=== PATIENT | male | born 1975 | race Caucasian/White ===

== ENCOUNTER → 2023-10-18 06:20 | Outpatient (REF) | payer BC, SELFPAY ==
[2023-10-18 07:22] LABS: ALT (SGPT) 50 U/L (0-50); AST (SGOT) 34 U/L (17-59); Albumin 4.4 g/dl (3.5-5.0); Alkaline Phosphatase 57 U/L (38-126); Blood Urea Nitrogen 24 mg/dl (9-20); Calcium 9.5 mg/dl (8.4-10.2); Carbon Dioxide 27 mmol/L (22-30); Chloride 103 mmol/L (98-107); Glucose 98 mg/dl (70-99); HDL Cholesterol 55 mg/dl; LDL Cholesterol, Calculated 14 mg/dl; Potassium 4.1 mmol/L (3.5-5.1); Sodium 137 mmol/L (135-145); Total Bilirubin 1.4 mg/dl (0.2-1.3); Total Cholesterol 87 mg/dl (50-199); Total Protein 6.6 g/dl (6.3-8.2); Triglyceride 92 mg/dl (10-149); Very Low Density Lipoprotein 18 mg/dl (0-30); eGFR > 60.00
== END ==
LOC: REG 06:20
PROVIDERS: ATTENDING PHYSICIAN Nurse Practitioner Family
DX: E78.2 Mixed hyperlipidemia (principal); R94.5 Abnormal results of liver function studies
CPT/HCPCS: 36415; 80053; 80061

== ENCOUNTER → 2024-05-15 06:22 | Outpatient (REF) | payer BC, SELFPAY ==
[2024-05-15 07:41] LABS: Urine Albumin Negative (Neg - Trace); Urine Bilirubin Negative (Negative); Urine Character Clear (Clear); Urine Color Yellow; Urine Glucose Negative (Negative); Urine Ketone Negative (Negative); Urine Leukocyte Negative (Negative); Urine Nitrite Negative (Negative); Urine Occult Blood Negative (Negative); Urine Urobilinogen Negative (Neg - 1+)
[2024-05-15 07:45] LABS: % Basophils 0.4 % (0-2); % Eosinophils 1.4 % (0-6); % Immature Granulocytes 0.3 % (0-0.5); % Lymphocytes 19.3 % (20.5-51.1); % Monocytes 14.4 % (1.7-9.3); % Neutrophils 64.2 % (42.2-75.2); Absolute Eosinophils 0.1 10^3/uL (0-0.7); Absolute Lymphocytes 1.8 10^3/uL (1.2-3.4); Absolute Monocytes 1.3 10^3/uL (0.1-0.6); Absolute Neutrophils 5.9 10^3/uL (1.4-6.5); Hematocrit 47.9 % (39.0-52.0); Hemoglobin 17.1 g/dL (13.0-18.0); Mean Corp Hgb Conc. 35.7 g/dL (33.0-37.0); Mean Corpuscular Hgb 31.7 pg (27.0-31.0); Mean Corpuscular Volume 88.9 fL (80.0-94.0); Mean Platelet Volume 11.6 fL (7.4-10.4); Nucleated Red Blood Cells % 0 % (-); Platelet Count 216 10^3/uL (130-400); Red Blood Cell Count 5.39 10^6/uL (4.70-6.10); Red Cell Dist. Width 13.1 % (11.5-14.5); White Blood Cell Count 9.2 10^3/uL (4.8-10.8)
[2024-05-15 08:59] LABS: ALT (SGPT) 59 U/L (0-50); AST (SGOT) 36 U/L (17-59); Albumin 4.5 g/dl (3.5-5.0); Alkaline Phosphatase 51 U/L (38-126); Blood Urea Nitrogen 22 mg/dl (9-20); Calcium 9.6 mg/dl (8.4-10.2); Carbon Dioxide 28 mmol/L (22-30); Chloride 103 mmol/L (98-107); Glucose 96 mg/dl (70-99); HDL Cholesterol 57 mg/dl; LDL Cholesterol, Calculated 20 mg/dl; Potassium 4.6 mmol/L (3.5-5.1); Sodium 142 mmol/L (135-145); Total Bilirubin 1.3 mg/dl (0.2-1.3); Total Cholesterol 93 mg/dl (50-199); Total Protein 6.8 g/dl (6.3-8.2); Triglyceride 80 mg/dl (10-149); Very Low Density Lipoprotein 16 mg/dl (0-30); eGFR > 60.00
[2024-05-15 09:22] LABS: PSA, Total - Screen 0.74 ng/ml (0.0-4.0); TSH Reflex To Free T4 1.59 uIU/ml (0.47-4.68)
== END ==
LOC: REG 06:22
PROVIDERS: ATTENDING PHYSICIAN Nurse Practitioner Family
DX: Z00.00 Encounter for general adult medical examination without abnormal findings (principal); R94.5 Abnormal results of liver function studies; E78.2 Mixed hyperlipidemia; E66.9 Obesity, unspecified; Z12.11 Encounter for screening for malignant neoplasm of colon; R31.9 Hematuria, unspecified; R79.89 Other specified abnormal findings of blood chemistry
CPT/HCPCS: 36415; 80053; 80061; 81003; 84443; 85025; G0103

== ENCOUNTER 2024-06-29 09:27 | Emergency (ER) | payer BC, SELFPAY ==
[2024-06-29 09:35] VITALS: BP 144/86
--- NOTE | 2024-06-29 10:21 | ED.GENMED ---
History of Present Illness
General
Chief Complaint: Musculo-Skeletal Complaint
Time Seen by Provider: 06/29/24 10:15
History of Present Illness
History of Present Illness:
49-year-old male presents to the emergency department evaluation right-sided low back pain radiating to thigh for the past 2 days. History of similar pain after an injury several months back. Has minimal pain at rest but with movement particular
walking he develops a spastic quality pain in the low back. No lower extremity paresthesias or loss of urinary continence. Took a dose of methylprednisolone last night without improvement. Taking steroid in the past for this but 'do not like the
way they make me feel'.
Past History
Past History
ED Past Medical History: Hypercholesterolemia
ED Past Surgical History: None
Social History
Tobacco: Former smoker
Living: with family
Review of Systems
Review of Systems
Allergies reviewed?: Yes
All Other Systems: ROS reviewed and negative except as documented in HPI and ROS
Phy Exam
Physical Exam
Physical Exam:
GEN: Well appearing, NAD, WDWN
HEENT: Oral mucosa moist, no scleral icterus
Cardiac: Regular rate
Lung: No respiratory distress, no tachypnea
MSK: No gross deformity or injuries. Lumbar spine range of motion normal with no midline bony tenderness. Palpable tenderness to the right proximal gluteal region. 2+ patellar reflexes. Bilateral hip range of motion normal with intact strength
Skin: Good color, no pallor or jaundice, no rashes
Neuro: AO x3, moves all extremities freely
Psych: Calm, cooperative
Course
Orders/Labs/Results
Orders:
Orders
06/29/24 10:21
Diazepam [Valium] 5 mg PO NOW STA
Ketorolac [Toradol] 30 mg IM NOW STA
Vital Signs
Initial and Last Documented VS:
Initial Vital Signs
Temp Pulse Resp BP Pulse Ox
98.8 F 74 16 144/86 98
06/29/24 09:35 06/29/24 09:35 06/29/24 09:35 06/29/24 09:35 06/29/24 09:35
Last Documented Vital Signs
Temp Pulse Resp BP Pulse Ox
98.8 F 74 16 144/86 98
06/29/24 09:35 06/29/24 09:35 06/29/24 09:35 06/29/24 09:35 06/29/24 09:35
MDM/Problems Addressed
MDM/Problems Addressed:
Discogenic back pain versus acute muscle spasm. Would hesitate to start steroids right this case, recommend NSAIDs and muscle relaxants. Consider outpatient PT. No indication for imaging.
*Critical Care Note
Total Time (30-74mins, 75-104mins- exclusive of procedures): Not Applicable
ED Attending Note
-
Portions of this chart may have been created with voice recognition software.� Occasional wrong word or��sound alike� substitutions may have occurred due to the inherent limitations of voice recognition software.
Discharge Plan
Departure
Patient Disposition: Home (Routine Discharge)
Date of Disposition: 06/29/24
Time of Disposition: 10:25
Patient with high blood pressure during this ER visit?: No
Discharge Problem:
Lumbar paraspinal muscle spasm
Instructions: Muscle Spasm ED
Prescriptions:
New
ketorolac 10 mg tablet
10 mg PO Q8H PRN (Reason: Pain) Qty: 15 0RF
Rx Instructions:
maximum total duration of 5 days from all oral, intranasal, or parenteral formulations
methocarbamol 750 mg tablet
750 - 1,500 mg PO Q8H PRN (Reason: muscle spasm) Qty: 20 0RF
Interventions
Interventions:
*Risk Screen - Suicide Last Done: 06/29/24 09:35
*General Assessment Last Done: 06/29/24 09:35
*Neglect/Abuse Screening Last Done: 06/29/24 11:15
ED- Fall Risk Assessment Last Done: 06/29/24 11:15
*ED COVID-19 Vaccine History Last Done: 06/29/24 09:35
*Nursing Disposition Last Done: 06/29/24 11:43
ED-Musculoskeletal Assessment Last Done: 06/29/24 11:15
Discharge Date and Time
Discharge Date/Time: 06/29/24 11:44
Print Language: DANISH
[2024-06-29] MEDS: VALIUM 5 MG PO (11:05)
[2024-06-29] MEDS: TORADOL 30 MG IM (11:11)
[2024-06-29 11:42] VITALS: BMI 24.5
== END 2024-06-29 11:44 | disposition home or self-care (01) ==
LOC: EMR 09:27
PROVIDERS: EMERGENCY PHYSICIAN Emergency Medicine; FAMILY PHYSICIAN Nurse Practitioner Family
DX: M62.830 Muscle spasm of back (principal); E78.00 Pure hypercholesterolemia, unspecified; Z87.891 Personal history of nicotine dependence
CPT/HCPCS: 96372; 99284

== ENCOUNTER → 2024-09-24 13:25 | Outpatient (REF) | payer BC, SELFPAY ==
[2024-09-24 15:06] LABS: ALT (SGPT) 33 U/L (0-50); AST (SGOT) 25 U/L (17-59)
== END ==
LOC: REG 13:25
PROVIDERS: ATTENDING PHYSICIAN Nurse Practitioner Family
DX: R94.5 Abnormal results of liver function studies (principal)
CPT/HCPCS: 36415; 84450; 84460

== ENCOUNTER → 2025-07-08 06:23 | Outpatient (REF) | payer BC, SELFPAY ==
[2025-07-08 06:44] LABS: Urine Character Clear (Clear)
[2025-07-08 06:47] LABS: Hematocrit 48.1 % (39.0-52.0); Hemoglobin 16.8 g/dL (13.0-18.0); Mean Corp Hgb Conc. 34.9 g/dL (33.0-37.0); Mean Corpuscular Volume 87.3 fL (80.0-94.0); Nucleated Red Blood Cells % 0 % (-); Platelet Count 204 10^3/uL (130-400); Red Cell Dist. Width 12.9 % (11.5-14.5)
[2025-07-08 07:27] LABS: ALT (SGPT) 46 U/L (0-50); AST (SGOT) 31 U/L (17-59); Albumin 4.4 g/dl (3.5-5.0); Alkaline Phosphatase 52 U/L (38-126); Blood Urea Nitrogen 19 mg/dl (9-20); Calcium 9.2 mg/dl (8.4-10.2); Carbon Dioxide 27 mmol/L (22-30); Chloride 103 mmol/L (98-107); Glucose 96 mg/dl (70-99); HDL Cholesterol 54 mg/dl; LDL Cholesterol, Calculated 42 mg/dl; Potassium 4.4 mmol/L (3.5-5.1); Sodium 137 mmol/L (135-145); Total Protein 6.8 g/dl (6.3-8.2); Very Low Density Lipoprotein 22 mg/dl (0-30); eGFR > 60.00
[2025-07-08 07:57] LABS: PSA, Total - Screen 0.66 ng/ml (0.0-4.0)
[2025-07-08 09:33] LABS: Urine Squamous Cell 0-2 /LPF (Few); Urine White Cell 0-2 /HPF (0-5)
== END ==
LOC: REG 06:23
PROVIDERS: ATTENDING PHYSICIAN Nurse Practitioner Family
DX: Z00.00 Encounter for general adult medical examination without abnormal findings (principal); Z13.31 Encounter for screening for depression; E78.2 Mixed hyperlipidemia; E66.9 Obesity, unspecified; Z12.11 Encounter for screening for malignant neoplasm of colon; R31.9 Hematuria, unspecified; Z12.5 Encounter for screening for malignant neoplasm of prostate; M54.50 Low back pain, unspecified
CPT/HCPCS: 36415; 80053; 80061; 81003; 81015; 84443; 85025; G0103